=== PATIENT | female | born 1980 | race Two or more races ===

== ENCOUNTER 2019-02-07 13:56 | Emergency (ER) | payer MEDICAID ==
[~2019-02-07] VITALS: Ht 165.1 cm; Wt 54.4 kg
[2019-02-07 14:17] VITALS: BP 119/66
== END 2019-02-07 17:03 | disposition home or self-care (01) ==
LOC: ER 13:56
DX: M25.561 Pain in right knee (principal)
CPT/HCPCS: 73564-TC